=== PATIENT | female | born 1960 | race Caucasian/White ===

== ENCOUNTER 2021-07-02 08:28 | Outpatient (CLI) | payer MEDICARE, MEDICAID | END 2021-07-02 08:29 | disposition home or self-care (01) | LOC: CSHWCC 08:28 | PROVIDERS: ATTEND Nurse Practitioner Family | DX: T81.89XD Other complications of procedures, not elsewhere classified, subsequent encounter (principal) | CPT/HCPCS: 97139; 97605; G0463; 99203 ==

== ENCOUNTER 2021-07-05 08:05 | Outpatient (CLI) | payer MEDICARE, MEDICAID | END 2021-07-05 08:06 | disposition home or self-care (01) | LOC: CSHWCC 08:05 | PROVIDERS: ATTEND Nurse Practitioner Family | DX: T81.89XD Other complications of procedures, not elsewhere classified, subsequent encounter (principal) ==

== ENCOUNTER 2021-07-09 08:09 | Outpatient (CLI) | payer MEDICARE, MEDICAID | END 2021-07-09 08:10 | disposition home or self-care (01) | LOC: CSHWCC 08:09 | PROVIDERS: ATTEND Nurse Practitioner Family | DX: T81.89XD Other complications of procedures, not elsewhere classified, subsequent encounter (principal) | CPT/HCPCS: 97605 ==

== ENCOUNTER 2021-07-13 08:04 | Outpatient (CLI) | payer MEDICARE, MEDICAID | END 2021-07-13 08:05 | disposition home or self-care (01) | LOC: CSHWCC 08:04 | PROVIDERS: ATTEND Nurse Practitioner Family | DX: T81.89XD Other complications of procedures, not elsewhere classified, subsequent encounter (principal) | CPT/HCPCS: 97139; 97605; G0463; 99211 ==

== ENCOUNTER 2021-07-17 13:15 | Outpatient (CLI) | payer MEDICARE, MEDICAID | END 2021-07-17 13:16 | disposition home or self-care (01) | LOC: CSHWCC 13:15 | PROVIDERS: ATTEND Nurse Practitioner Family | DX: T81.89XD Other complications of procedures, not elsewhere classified, subsequent encounter (principal) | CPT/HCPCS: 97139; G0463; 99213 ==

== ENCOUNTER 2021-07-23 13:02 | Outpatient (CLI) | payer MEDICARE, MEDICAID | END 2021-07-23 13:03 | disposition home or self-care (01) | LOC: CSHWCC 13:02 | PROVIDERS: ATTEND Nurse Practitioner Family | DX: T81.89XD Other complications of procedures, not elsewhere classified, subsequent encounter (principal) | CPT/HCPCS: 97139; G0463; 99212 ==